=== PATIENT | female | born 1960 | race Caucasian/White ===

== ENCOUNTER 2024-08-05 22:53 | Emergency (ER) | payer OTHER, SELFPAY ==
--- OUTSIDE RECORDS SUMMARY | 2024-08-05 22:55 | XMS_ITS | Clinical Summary ---
Author Organization [facility] Address [place], [place] [address] Care Team Providers Care Structural Layout Worker Name Role Phone Ellen Kirkland Primary Care Provider Allergies No known active allergies Medications medication order composerIndicat ions:Menopause Estriol 0.3 % in base. Insert 1 gram into vagina at bedtime twice weekly. 30 g 5 03/05/2024 Active Active Problems Problem Noted Date Diagnosed Date Unspecified hypothyroidism 03/22/2009 Other malaise and fatigue 03/15/2009 Immunizations Name Administration Dates Next Due COVID-19 vaccine (Moderna 100mcg/0.5mL) PF, MDV 12/09/2020,11/11/2020 COVID-19 vaccine (Pfizer-Bio NTech 30mcg/0.3mL) PF, MDV 07/27/2021 Influenza RIV4 (Age 18+ Year s) PRESERV FREE 05/10/2022,05/24/2020 Influenza, IIV3 (Age >=3 years) 05/14/20 13,06/18/2012,07/21/2011, 010 Influenza, IIV4 05/12/2021,06/03/2017,06/22/2015 Influenza, IIV4 (=>6mos) MDV 05/06/2019 Td (Age >=7 Years) 10/25/2004 Tdap 02/05/2012 Zoster (Shingrix-RZV, recombinant) 11/29/2022, Family History Medical History Relation Name Comments Other Brother skin cancer, lo jasson treatment was successful Hypertension Father Other Father skin cancer, lo jasson treatment was successful Other Mother alzheimers Cancer-breast Paternal Aunt Cancer-colon No Family History Cancer-ovarian No Family History Relation Name Status Comments Brother Father Alive Mother Alive Paternal Aunt Social History Tobacco Use Types Packs/Day Years Used Date Smoking Tobacco: Never Smokeless Tobacco: Never Tobacco Cessation:Counseling Given: Not Answered Alcohol Use Standard Drinks/Week Comments Yes 0 (1 standard drink = 0.6 oz pur e alcohol) occasional PHQ-2 Answer Date Recorded PHQ-2 TOTAL SCORE 0 10/05/2021 Social Connections Answer Date Recorded Frequency of Communication with Friends and Fami ly 0 11/15/2022 Financial Resource Strain Answer Date R ecorded Difficulty of Paying Living Expenses 3 11/15/2022 Difficulty of Paying Living Expenses Not on file 11/15/2022 Food Insecurity Answer Date Recorded Do you worry your food will run out before you are able to buy more? 1 05/16/2023 Transportation Needs Answer Date Record ed Lack of Transportation (Medical) 1 11/15/2022 Housing Stability Answer Date Recorded What is your housing situation today? 1 05/16/2023 Comments No Sex and Gender Information Value Date Recorded Sex Assigned at Not on file Legal Sex Female 6:21 AM UTILIZATION SUPERVISOR Gender Identity Not on file Sexual Orientation Not on file Occupation Industry Job Start Date Job End Date sales Not on file Not on file Not on file Obstetrics History Para Term AB IAB SAB Ectopic Multiple Livin g Live Births 2 2 2 Date Outcome GA Total Labor Labor/2nd/3rd Weight Sex Type Anes PTL Katt A1 A5 Name Clin 997 Para M 000 Para M Last Filed Vital Signs Vital Sign Reading Time Taken Comments Blood Pressure 124/80 05/16/2023 10:12 AM CDT Pulse 76 05/16/2023 10:12 AM CDT Temperature 36.9 C (98.5 F) 03/23/2021 6:55 PM CDT Respiratory Rate 14 03/23/2021 6:55 PM CDT Oxygen Saturation 100% 05/16/2023 10:12 AM CDT Inhaled Oxygen Concentration - - Weight 73.9 kg (163 lb) 05/16/2023 10:12 AM CDT Height 163 cm (5' 4.17) 05/16/2023 10:12 AM CDT Body Mass Index 27.83 05/16/2023 10:12 AM CDT Plan of Treatment Health Maintenance Due Date Last Done Comments HIV for age 15-65 1975 Hepatitis C screening for ag e 18-79 1978 Pneumococcal series for age 50+ (1 of 1 - PCV) 2010 Tetanus booster 02/04/2022 02/05/2012, 10/25/2004 Depression screening for age 12+ 10/07/2022 10/07/2021, 10/05/2021, 02/18/2019, Additional history exists COVID-19 vaccine series ( season) 2024 05/29/2022, 07/27/2021, 12/09/2020, Additional history exists Influenza for age 50-64 03/23/2024 05/10/20 22, 05/12/2021, 05/24/2020, Additional history exists BMI (ht and wt on same day) for age 18+ 05/16/2024 05/16/2023, 11/15/2022, 10/05/2021, Additional history exists Mammogram for age 45-75 09/03/2024 09/03/19 24, 08/02/2022, 05/25/2021, Additional history exists Pap test for age 21-65 08/20/2025 , 08/20/2020, 10/06/2015, Additional history exists Colonoscopy through age 75 12/26/2025 12/27/2015 Lipids for age 45-75 11/16/2027 11/15/2022, 10/05/2021, 12/19/2017, Additional history exists RSV vaccine for adults or (1 - 1-dose 75+ series) 2035 Tdap Completed 02/05/2012 Zoster (shingles) series for age 50+ Completed 11/29/2022, 09/12/2022 Procedures Procedure Name Priority Date/Time Associated Diagnosis Comments XR MAMMO NAINA BILAT SCREEN Routine 09/03/2023 4:20 PM UTILIZATION SUPERVISOR Encounter for screening mammogram for malignant neoplasm of breast LC LIPID PANEL AND CHOL/HDL RATIO Routine 11/15/2022 2:04 PM CDT Screening cholesterol level RADIO TECHNICIAN THIN PREP PAP SCREEN IMAGED Routine 08/20/2020 2:38 PM UTILIZATION SUPERVISOR Screening for cervical cancer COLONOSCOPY 12/27/2015 11:54 AM CDT from Last 3 Months or Most Recently Relevant to Health Maintenance Results * XR MAMMO NAINA BILAT SCREEN (09/03/2023 4:20 PM UTILIZATION SUPERVISOR) Anatomical Region Laterality Modality BREASTS, Breast Left, Breast Right Bilateral Mammography Impressions 09/06/2023 3:38 PM UTILIZATION SUPERVISOR There is no radiographic evidence for malignancy. Recommend annual mammograms. MAMMOGRAM ASSESSMENT: ACR 1 Negative PATIENTS: You will also receive a letter with your examination results in an easy to read format. If you have questions about your results, please contact your referring provider. Narrative 09/06/2023 3:38 PM UTILIZATION SUPERVISOR For Patients: As a result of the Century Cures Act, medical imaging exams and procedure reports are released immediately into your electronic medical record. You may view this report before your referring provider. If you have questions, please contact your health care provider. XR MAMMO NAINA BILAT SCREEN [[id number]] CLINICAL HISTORY: This is an asymptomatic 63 y.o. patient. INDICATION FOR EXAM: Mammogram Screening. TECHNIQUE: CC & MLO views were obtained. This study was evaluated with the assistance of Computer-Aided Detection. Breast Tomosynthesis was used in interpretation. COMPARISON FILM: Yes 08/02/22 [facility] 05/25/21 [facility] FINDINGS: The breasts have scattered areas of fibroglandular density. There are no dominant masses, suspicious micro calcifications or areas of architectural distortion. us Ellen LYONS MAMMO Final R esult * (ABNORMAL) LC LIPID PANEL AND CHOL/HDL RATIO (11/15/2022 2:04 PM CDT) Cholesterol, Total 250(H) 100 - 199 mg/dL 11/17/2022 9:10 AM CDT [facility] Triglycerides 168(H) 0 - 149 mg/dL 11/17/2022 9:10 AM CDT [facility] HDL Cholesterol 54 >39 mg/dL 9:10 AM CDT [facility] VLDL Cholesterol Jasson 31 5 - 40 mg/dL 11/17/2022 9:10 AM T [facility] LDL Chol Calc ([facility]) 165(H) 0 - 99 mg/dL 11/17/2022 9:10 AM CDT [facility] T. Chol/HDL Ratio 4.6(H) 0.0 - 4.4 ratio 11/17/2022 9:10 AM T [facility] Comment: T. Chol/HDL Ratio Men Women 1/2 Avg.Risk 3.4 3.3 Avg.Risk 5.0 4.4 2X Avg.Risk 9.6 7.1 3X Avg.Risk 23.4 11.0 Blood BLOOD SPECIMEN / Unknown Venipuncture / Unknown 11/15/2022 2:04 PM CDT 11/15/2022 2:05 PM CDT Narrative [facility] - 11/17/2022 9:10 AM CDT Performed at: [address] [place] [address] [id number] [place] Supervisor: Elias Stanford MD, Phone: [phone] us Ellen LYONS SEND OUTS Final R esult [facility] [address] [place] [address], * RADIO TECHNICIAN THIN PREP PAP SCREEN IMAGED (08/20/2020 2:38 PM UTILIZATION SUPERVISOR) Case Report Gynecologic Cytology Report Case: [id number] Authorizing Provider: Ellen Kirkland PA Collected: 08/20/2020 7778 Ordering Location: [facility] Received: 08/20/2020 1501 Clinic First Screen: Lexi Warren Rescreen: Kristie Mendez Specimen: RADIO TECHNICIAN ThinPrep Vial Screening, Cervical 08/31/2020 9:20 AM UTILIZATION SUPERVISOR [facility] INTERPRETATION/ RESULT NEGATIVE FOR INTRAEPITHELIAL LESION OR MALIGNANCY (NIL) (none) 08/31/2020 9:20 AM UTILIZATION SUPERVISOR [facility] IMEN ADEQUACY Satisfactory for evaluation No endocervical component seen 08/31/2020 9:20 AM UTILIZATION SUPERVISOR [facility] HPV REQUEST HPV and PAP 08/31/2020 9:20 AM UTILIZATION SUPERVISOR [facility] Date of LMP 2015 08/31/2020 9:20 AM UTILIZATION SUPERVISOR [facility] Last Pap Date 10/06/15 08/31/2020 9:20 AM UTILIZATION SUPERVISOR [facility] Last Pap Result NIL 9:20 AM UTILIZATION SUPERVISOR [facility] Abnormal Pap or [place] Bx in last 5 years No 08/31/2020 9:20 AM UTILIZATION SUPERVISOR [facility] Menstrual Status Postmenopausal 08/31/2020 9:20 AM UTILIZATION SUPERVISOR [facility] [place] Bx Done Today No 08/31/2020 9:20 AM UTILIZATION SUPERVISOR [facility] Additional Information None given 08/31/2020 9:20 AM UTILIZATION SUPERVISOR [facility] Comment: Cytology is screened at [facility] - [address], [place] [address] and [facility] - [address], [place] [address] and [facility] - [address] [place] [address] Interpreted at [facility] - [address], [place] [address] Automated Review Successful 08/31/2020 9:20 AM UTILIZATION SUPERVISOR [facility] Comment:Specimen processed s uccessfully by automated oakes machine operator device, ThinPrep Imaging System, [employer] ANCILLARY TESTING RADIO TECHNICIAN HPV Ordered, Please see separate report 08/31/2020 9:20 AM UTILIZATION SUPERVISOR [facility] Note The pap test is a screening technique, not a diagnostic procedure. It is used primarily to screen for squamous cancers and precursor lesions. Published studies have shown that it is subject to both false negative and false positive results. The pap test should not be used as the sole means to diagnose or exclude pre-malignant and malignant lesions. 08/31/2020 9:20 AM UTILIZATION SUPERVISOR [facility] Other (Cervical) Non-Blood / Unknown 08/20/2020 2:38 PM UTILIZATION SUPERVISOR 08/20/2020 3:01 PM UTILIZATION SUPERVISOR us Ellen LYONS PATHOLOGY/CYTOLOGY Jane ortiz Result [facility] [address] [place] [address], [place] * COLONOSCOPY (12/27/2015 11:54 AM CDT) 12/27/2015 11:5 4 AM CDT Narrative 12/27/2015 11:54 AM CDT Patient Name: Nubia Munguia Procedure Date: 12/27/2015 Gender: Female Date of : 1960 Admit Type: Ambulatory Procedure: Colonoscopy Proceduralist: Maximilian Tracy Indications/Pre-Op Diagnosis: Screening for colorectal malignant neoplasm Medications: Midazolam 6 mg IV, Fentanyl 125 micrograms IV, The level of sedation administered was moderate Procedure Description: The patient had risks, benefits and alternatives explained to and gave informed consent. The patient had a stable cardiopulmonary status and judged an adequate candidate for conscious sedation. The Colonoscope was passed through the anus and advanced to the cecum, identified by appendiceal orifice and ileocecal valve. The colonoscopy was performed without difficulty. The patient tolerated the procedure well. The quality of the bowel preparation was good. Estimated Blood Loss & Specimen: Estimated blood loss: none. Specimen collected - None Findings: The entire examined colon appeared normal on direct and retroflexion views. Impressions/Post-Op Diagnosis: - The entire examined colon is normal . - No specimens collected. Recommendation: - Repeat colonoscopy in 5 years for surveillance. Maximilian Franklin, 12/27/2015 12:31:25 PM This report has been signed electronically. Note Initiated On: 12/27/2015 11:54 AM Procedure Note Maximilian Franklin R - 12/27/2015 12:31 PM CDT Patient Name: Nubia Munguia Procedure Date: 12/27/2015 Gender: Female Date of : 1960 Admit Type: Ambulatory Procedure: Colonoscopy Proceduralist: Maximilian Tracy Indications/Pre-Op Diagnosis: Screening for colorectal malignantneoplasm Medications: Midazolam 6 mg IV, Fentanyl 125 microgramsIV, The level of sedation administered wasmoderate Procedure Description: The patient had risks, benefits and alternatives explained to andgave informed consent. The patient had a stable cardiopulmonary status and judged an adequate candidate for conscious sedation. The Colonoscope was passed through the anus and advanced to thececum, identified by appendiceal orifice and ileocecal valve. Thecolonoscopy was performed without difficulty. The patient tolerated the procedure well. The quality of the bowel preparation was good. Estimated Blood Loss & Specimen: Estimated blood loss: none. Specimen collected - None Findings: The entire examined colon appeared normal on direct and retroflexion views. Impressions/Post-Op Diagnosis: - The entire examined colon is normal . - No specimens collected. Recommendation: - Repeat colonoscopy in 5 years for surveillance. Maximilian Franklin, 12/27/2015 12:31:25 PM This report has been signed electronically. Note Initiated On: 12/27/2015 11:54 AM Maximilian Franklin MD PROCEDURE ORD Final Re sult from Last 3 Months or Most Recently Relevant to [place] [address] [facility] [place] [id number] [employer]AUSE [place] [id number] Advance Directives Documents on File Type Date Recorded Patient Inspector Wire Rope Expl anation Healthcare Directive 06/25/2024 3:02 PM si gned 06/12/24 - note: address on HCD is a secondary home. [place] address is currently their residence * Full Code (Latest Code Status on File) Date Activated Date Inactivated Comments 12/27/2015 11:02 AM 12/27/2015 3:21 PM Care Teams Structural Layout Worker Relationship Specialty Start Date End Date Ellen Kirkland PA [address] [place] [address] PCP - General Physician Cloth Packer 02/18/19
[2024-08-05 22:58] VITALS: BP 158/90; PULSE 92; RESP 18; TEMP 36.9; O2SAT 96; BMI 25.0
[2024-08-06] LABS: Strep A DNA Probe* NOT DETECTED (Not Detectd)
--- NOTE | 2024-08-06 00:06 | CRLHL7_ITS ---
For Patients: As a result of the Century Cures Act, medical imaging exams and procedure reports are released immediately into your electronic medical record. You may view this report before your referring provider. If you have questions, please contact your health care provider. INDICATION: Fever and cough. TECHNIQUE: Chest 2 views. COMPARISON: None. FINDINGS: The heart is not abnormally enlarged. The trachea is midline. No confluent airspace opacity appreciated. No pleural effusion or pneumothorax. No acute osseous abnormality. IMPRESSION: No acute cardiopulmonary abnormality appreciated. Dictated by Lenny Bowens MD @ 08/06/2024 12:50:39 AM (Electronically Signed)
--- NOTE | 2024-08-06 00:07 | ED_ITS ---
HPI - General Adult General Chief complaint: Shortness of Breath/Dyspnea Stated complaint: 14 days trouble breathing, rash Time Seen by Provider: 08/05/24 23:44 Source: patient Mode of arrival: ambulatory Limitations: no limitations History of Present Illness HPI narrative: 64-year-old otherwise healthy female presents to the emergency department for evaluation of cough for the past 2 weeks, waxing and waning in nature. Accompanied by intermittent low-grade fevers. No obvious illness exposures. No pertinent travel. Has use Tylenol, cough syrups intermittently with no significant improvement. The cough is the most bothersome part. Does feel a little short of breath with the cough. Developed a rash, red, maculopapular slightly itchy on the extensor surfaces and lower neck today, she wonders if this could be related to strep. No history of chronic tobacco use, COPD or chronic lung disease. No nausea vomiting, no bloody diarrhea. No dysuria. Does have nasal congestion, some postnasal drip. No ocular or ear symptoms. Cough is nonproductive Reports that her past medical history is benign, no major long-term health problems. No prescription medications, no allergies. Nonsmoker. ROS is no table for the respiratory symptoms as above only, otherwise denies times 12 systems. Related Data Previous Rx's ?Medication ?Instructions ?Recorded albuterol sulfate 90 mcg/actuation 2 puff inhalation 6XD PRN 08/06/24 aerosol inhaler shortness of breath or wheezing #8.5 grams inhalat.spacing dev,large mask #1 ea 08/06/24 (BreatheRite Spacer and Mask, Adult) levalbuterol tartrate 45 2 puff inhalation Q4-6H PRN #15 08/06/24 mcg/actuation aerosol inhaler grams prednisone 20 mg tablet 20 mg PO DAILY #3 tabs 08/06/24 Allergies Allergy/AdvReac Type Severity Reaction Status Date / Time No Known Drug Allergies Allergy Verified 08/05/24 23:02 [facility] Social History Smoking Status: Never smoker Non-prescribed substance use: denies use Exam Const: Vital Signs, click to edit/add: Vital Signs - 24 hr 08/05/24 22:58 Temperature 98.5 F Pulse Rate [Pulse Oximeter] 92 Respiratory Rate 18 Blood Pressure [Ri ght Upper Arm] 158/90 H Pulse Oximetry 96 Oxygen Delivery Me thod Room Air Documenting provider has reviewed patient's vital signs: yes Common normals: no apparent distress and alert General appearance: well kempt HENMT: Common normals: normocephalic Head and scalp: normocephalic Other: Nasal congestion with mucopurulent rhinorrhea noted. Cobblestoning postnasal drip with otherwise normal oropharynx. Moist membranes, acyanotic lips. Otherwise normal facial exam. Eye: Common normals: conjunctivae normal General eye: normal appearance of both eyes Conjunctiva: conjunctiva(e) normal Neck & C-Spine: Common normals: no meningeal signs Other: Mild anterior cervical and submandibular lymphadenopathy noted. Normal range of motion of neck with no meningeal signs Resp: Common normals: normal respiratory effort Other: Slight prolongation of expiration but do not hear an obvious wheeze. Decreased air movement in the bases. No crackles. There are some coarse upper airway sounds noted. Cardio: Common normals: regular rate, regular rhythm, S1 normal heart sound, S2 normal heart sound and no murmurs Rate: regular rate Rhythm: regular rhythm Heart sounds: S1 normal and S2 normal GI: Common normals: Normal to inspection, nondistended, normoactive bowel sounds present and soft to palpation Palpation: soft Extremity: Common normals: normal capillary refill General: normal exam except as noted Neuro: Sensorium/orientation: alert Meningeal signs: no meningeal signs Speech: speech normal Psych: Appearance: well kempt Attitude: engaged Activity/motor behavior: appropriate eye contact Insight: insight good Judgement: judgment good Skin: Narrative: Faint macular rash on the extensor surfaces of the forearm, tibia and neck area. Minimally raised, patchy. Does seem to be present on areas of mildly dry skin. No excoriation, signs of secondary infection or sharp defined borders. Course Course ED Course: 64-year-old female with 2 weeks of persistent cough, some signs of prolonged expiration and coarse upper airway sounds but no obvious pneumonia. Swabs for COVID, influenza RSV collected. Strep swab as well. At on per test this which will not be back until 1-2 days. Chest x-ray recommended. Will try DuoNeb and re-examined to see if this changes her pulmonary exam. Uncertain of the clinical significance of the rash, likely part of the initial viral syndrome but I do have concerns for secondary bacterial presentation now that symptoms have worsened after initial improvement. Reevaluation(s) Time of Reevaluation #1: 01:05 Reevaluation #1: Patient feeling much better after DuoNeb. Prolonged expiration is resolved. Still no wheeze. Coarse upper airway sounds have resolved and lung sounds are now clear. Chest x-ray reviewed, no signs of pneumonia or other complication. Patient afebrile, no tachypnea, tachycardia or hypoxia. Swabs are positive for influenza A. I suspect she actually had a different virus and now has contracted influenza a based on her worsening symptoms. Counseled patient on findings. She really did feel like the neb treatment was beneficial. Will give a prescription for albuterol inhaler, instructed on use of this. Three days of 20 mg prednisone once daily. Alarm symptoms reviewed that would warrant ED presentation. Patient verbalizes understanding and agreement. I do not think that she is a good candidate for Tamiflu as she has been symptomatic for more t leach 24 hours. Vital Signs Vital signs: Initial Vital Signs Temperature 98.5 F 08/05/24 22:58 Temperature Source Temporal Artery Scan 08/05/24 22:58 Pulse Rate 92 08/05/24 22:58 Pulse Strength 2+ Slightly Diminished 08/05/24 22:58 Respiratory Rate 18 08/05/24 22:58 Blood Pressure 158/90 H 08/05/24 22:58 Blood Pressure Mean 112 H 08/05/24 22:58 Blood Pressure Position Sitting 08/05/24 22:58 Pulse Oximetry 96 08/05/24 22:58 Oxygen Delivery Method Room Air 08/05/24 22:58 Vital Signs Temperature 98.5 F 08/05/24 22:58 Pulse Rate 92 08/05/24 22:58 Respiratory Rate 18 08/05/24 22:58 Blood Pressure 158/90 H 08/05/24 22:58 Pulse Oximetry 96 08/05/24 22:58 Oxygen Delivery Method Room Air 08/05/24 22:58 Temperature 98.5 F 08/05/24 22:58 Pulse Rate 92 08/05/24 22:58 Respiratory Rate 18 08/05/24 22:58 Blood Pressure 158/90 H 08/05/24 22:58 Pulse Oximetry 96 08/05/24 22:58 Oxygen Delivery Method Room Air 08/05/24 22:58 Medications Administered Medications: Discontinued Medications Generic Name Dose Route Start Last Admin Trade Name Mely PRN Reason Stop Dose Admin Albuterol/Ipratropium 1 neb 08/06/24 00:06 08/06/24 00:09 Iprat-Albut 0.5-2.5 Mg/3 Ml Neb IH 08/06/24 00:07 1 neb ONCE ONE Administration Medical Decision Making Lab Data Lab results reviewed: Yes I reviewed the patient's lab results Lab results narrative: Positive for influenza A Labs: Lab Results 08/05/24 08/06/24 Range/Units 23:26 00:06 SARS-CoV-2 (PCR) Negative SARS-CoV-2 (Negative) Influenza Type A (PCR) POSITIVE PCR FLU A A (Negative) Influenza Type B (PCR) Negative PCR FLU B (Negative) RSV (PCR) Negative PCR RSV (Negative) Group A Strep DNA NOT DETECTED (Not Detectd) Lab Acknowledgement Test Added Imaging Data Chest x-ray: Attestation: I have reviewed the pertinent imaging results. My impression: Clear chest Radiologist's impression: IMPRESSION: No acute cardiopulmonary abnormality appreciated. Dictated by Lenny Bowens MD @ 08/06/2024 12:50:39 AM Discharge Plan Discharge Clinical Impression: Influenza A, Bronchospasm Patient Disposition: Home w/ Parent or Adult Condition: Improved Instructions: Influenza (DC), Bronchospasm (ED) Additional Instructions: I am glad that you found the breathing treatment helpful. As we discussed, your swab is positive for influenza A. I suspect that that was not the 1st virus that caused your symptoms. I suspect that that has evolved just over the past few days. You likely have another 3-4 days of that virus. There are no signs of bacterial infection on your chest x-ray or clinical history. I have written a prescription for albuterol inhaler. You may use this up to every 2 hours as needed for cough or shortness of breath. Remember that this inflammation in the lungs can persist for several weeks but you should have resolution of severe shortness of breath, fever, body aches within a few more days. It is okay to use Tylenol 1000 mg or 6 hours and or ibuprofen 600 mg every 6 hours as needed for discomfort. Unfortunately, cough suppressants are not typically very effective but you are welcome to continue trying them. I will also give the 3 days of prednisone, a common anti-inflammatory medication to take in the mornings to help clear out that inflammation in your lungs. I have sent 2 different inhalers to the pharmacy as the computer claims that your insurance prefers a certain 1 but I find that very hard to believe. I have sent a note with these prescriptions to the pharmacist to only fill whichever 1 is insurance preferred. The rash is related to the virus and will clear up gradually. It is okay to use [id number] hydrocortisone cream, Vanicream or plain Vaseline to help soothe the skin. Please return to the emergency department if you have persistent vomiting, persistent high fever, severe shortness of breath or other signs of worsening. I would like you home from work for another 24-48 hours. Activity Level: Activity as Tolerated Prescriptions: New prednisone 20 mg tablet 20 mg PO DAILY Qty: 3 0RF levalbuterol tartrate 45 mcg/actuation HFA aerosol inhaler 2 puff inhalation Q4-6H PRNQty: 15 1RF albuterol sulfate 90 mcg/actuation HFA aerosol inhaler 2 puff inhalation 6XD PRN (Reason: shortness of breath or wheezing) Qty: 8.5 2RF (DME) BreatheRite Spacer-Mask,Adult Spacer See Rx Instructions .Route Qty: 1 0RF Rx Instructions: As directed Follow Up/Referrals: Ellen Kirkland PA-C [Primary Care Provider] - Stand Alone Forms: [employer] Info Instructions
[2024-08-06] MEDS: IPRAT-ALBUT 0.5-2.5 MG/3 ML NEB 1 NEB IH (00:09)
[2024-08-06 00:12] LABS: PCR FLU A POSITIVE PCR FLU A (Negative); PCR FLU B Negative PCR FLU B (Negative); PCR RSV Negative PCR RSV (Negative); SARS PCR* Negative SARS-CoV-2 (Negative)
--- OUTSIDE RECORDS SUMMARY | 2024-08-06 00:27 | XMS_ITS | Clinical Summary ---
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 Gender Identity Not on file Sexual Orientation [...] NAINA BILAT SCREEN Routine 09/03/2023 4:20 PM FINISH[employer] ROLLING Encounter for screening mammogram for malignant neoplasm of breast LC LIPID PANEL AND CHOL/HDL RATIO Routine 11/15/2022 2:04 PM CDT Screening cholesterol level DAY CARE WORKER THIN PREP PAP SCREEN IMAGED Routine 08/20/2020 2:38 PM FIN[employer] ROLLING Screening for cervical cancer COLONOSCOPY 12/27/2015 11:54 AM CDT from Last 3 Months or Most Recently Relevant to Health Maintenance Results * XR MAMMO NAINA BILAT SCREEN (09/03/2023 4:20 PM FIN[employer]LL[employer]) Anatomical Region Laterality Modality BREASTS, Breast Left, Breast Right Bilateral Mammography Impressions 09/06/2023 3:38 PM [employer] ROLLING There is no radiographic evidence for malignancy. Recommend annual mammograms. MAMMOGRAM ASSESSMENT: ACR 1 Negative PATIENTS: You will also receive a letter with your examination results in an easy to read format. If you have questions about your results, please contact your referring provider. Narrative 09/06/2023 3:38 PM FIN[employer] ROLLING For Patients: As a result of the Century Cures Act, medical imaging exams and procedure reports are released immediately into your electronic medical record. You may view this report before your referring provider. If you have questions, please contact your health care provider. XR MAMMO NAINA BILAT SCREEN [[id number]] CLINICAL HISTORY: This is an asymptomatic 63 y.o. patient. INDICATION FOR EXAM: Mammogram Screening. TECHNIQUE: CC & MLO views were obtained. This study was evaluated with the assistance of Computer-Aided Detection. Breast Tomosynthesis was used in interpretation. COMPARISON FILM: Yes 08/02/22 [facility] 05/25/21 [facility] FINDINGS: The breasts have scattered areas of fibroglandular density. There are no dominant masses, suspicious micro calcifications or areas of architectural distortion. us Ellen LYONS MAMMO Final R esult * (ABNORMAL) LC LIPID PANEL AND CHOL/HDL RATIO (11/15/2022 2:04 PM CDT) Cholesterol, Total 250(H) 100 - 199 mg/dL 11/17/2022 9:10 AM CDT [facility] ([facility]) Triglycerides 168(H) 0 - 149 mg/dL 11/17/2022 9:10 AM CDT [facility] ([facility]) HDL Cholesterol 54 >39 mg/dL 9:10 AM CDT [facility] ([facility]) VLDL Cholesterol Jasson 31 5 - 40 mg/dL 11/17/2022 9:10 AM T [facility] ([facility]) LDL Chol Calc ([facility]) 165(H) 0 - 99 mg/dL 11/17/2022 9:10 AM CDT [facility] ([facility]) T. Chol/HDL Ratio 4.6(H) 0.0 - 4.4 ratio 11/17/2022 9:10 AM T [facility] ([facility]) Comment: T. Chol/HDL Ratio Men Women 1/2 Avg.Risk 3.4 3.3 Avg.Risk 5.0 4.4 2X Avg.Risk 9.6 7.1 3X Avg.Risk 23.4 11.0 Blood BLOOD SPECIMEN / Unknown Venipuncture / Unknown 11/15/2022 2:04 PM CDT 11/15/2022 2:05 PM CDT Narrative [facility] ([facility]) - 11/17/2022 9:10 AM CDT Performed at: [address] [place] [address] [id number] Braille Proofreader: Elias Stanford MD, Phone: [phone] us Ellen LYONS SEND OUTS Final R esult [facility] ([facility]) [address] [place] [address], * DAY CARE WORKER THIN PREP PAP SCREEN IMAGED (08/20/2020 2:38 PM [employer]LL[employer]) Case Report Gynecologic Cytology Report Case: [id number] Authorizing Provider: Ellen Kirkland PA Collected: 08/20/2020 9618 Ordering Location: [facility] Received: 08/20/2020 1501 Clinic First Screen: Lexi Warren Rescreen: Kristie Mendez Specimen: DAY CARE WORKER ThinPrep Vial Screening, Cervical 08/31/2020 9:20 AM FIN[employer] COLD ROLLING [facility] INTERPRETATION/ RESULT NEGATIVE FOR INTRAEPITHELIAL LESION OR MALIGNANCY (NIL) (none) 08/31/2020 9:20 AM FINISHER COLD ROLLING [facility] IMEN ADEQUACY Satisfactory for evaluation No endocervical component seen 08/31/2020 9:20 AM FIN[employer] ROLLING [facility] HPV REQUEST HPV and PAP 08/31/2020 9:20 AM FIN[employer] COLD ROLLING [facility] Date of LMP 2015 08/31/2020 9:20 AM FINISHER COLD ROLLING [facility] Last Pap Date 10/06/15 08/31/2020 9:20 AM FINISHER COLD ROLLING [facility] mak[facility] Last Pap Result NIL 9:20 AM FINISHER COLD ROLLING [facility] Abnormal Pap or [place] Bx in last 5 years No 08/31/2020 9:20 AM FINISHER COLD ROLLING [facility] Menstrual Status Postmenopausal 08/31/2020 9:20 AM FINISHER COLD ROLLING [facility] [place] Bx Done Today No 08/31/2020 9:20 AM FINISHER COLD ROLLING [facility] Additional Information None given 08/31/2020 9:20 AM FINISHER COLD ROLLING [facility] mak[facility] Comment: Cytology is screened at [facility] - [address], [place] [address] and [facility] - [address], [place] [address] and [facility] - [address] [place] [address] Interpreted at [facility] - [address], [place] [address] Automated Review Successful 08/31/2020 9:20 AM FINISHER COLD ROLLING [facility] Comment:Specimen processed s uccessfully by automated high lift driver device, ThinPrep Imaging System, [employer] ANCILLARY TESTING DAY CARE WORKER HPV Ordered, Please see separate report 08/31/2020 9:20 AM FINISHER COLD ROLLING [facility] Note The pap test [...] pre-malignant and malignant lesions. 08/31/2020 9:20 AM FINISHER COLD ROLLING [facility] Other (Cervical) Non-Blood / Unknown 08/20/2020 2:38 PM FINISHER C[employer] ROLLING 08/20/2020 3:01 PM FINISHER COLD ROLLING us Ellen LYONS PATHOLOGY/CYTOLOGY Jane ortiz Result [facility] [address] [place] [address], [place] * COLONOSCOPY (12/27/2015 11:54 AM CDT) [...] Recently Relevant to [place] [id number] [facility] Response [facility] [address] [place] [id number] [employer] AP[employer]AUSE [place] [id number] Advance Directives Documents on File Type Date Recorded Patient Welder Apprentice Arc Expl anation Healthcare Directive 06/25/2024 3:02 PM si gned 06/12/24 - note: address on HCD is a secondary home. [place] address is currently their residence * Full Code (Latest Code Status on File) Date Activated Date Inactivated Comments 12/27/2015 11:02 AM 12/27/2015 3:21 PM Care Teams Patient Account Specialist Relationship Specialty Start Date End Date Ellen Kirkland PA [address] [place] [address] PCP - General Physician Product Evangelist 02/18/19
[2024-08-06 01:14] VITALS: BP 135/78; PULSE 85; RESP 18; TEMP 36.9; O2SAT 96
[2024-08-06 01:46] VITALS: BP 135/78; PULSE 85; RESP 18; TEMP 36.9
[2024-08-08 09:21] LABS: B. pertussis/parapertus Source Not Provided; Bordetella parapertussis PCR Not Detected; Bordetella pertussis by PCR Not Detected
== END 2024-08-06 01:46 | disposition home or self-care (01) ==
PROVIDERS: Emergency Provider Family Medicine; PCP Physician Assistant Medical
DX: J09.X2 Influenza due to identified novel influenza A virus with other respiratory manifestations (principal); J98.01 Acute bronchospasm
CPT/HCPCS: 36415; 71046; 87631; 87651; 99284